=== PATIENT | male | born 2000 | race Caucasian/White ===

== ENCOUNTER 2018-03-15 13:45 | Emergency (ER) | payer MEDICAID ==
[~2018-03-15] VITALS: Ht 165.1 cm; Wt 78.0 kg
[2018-03-15] MEDS ORDERED: TETANUS, DIPHTHERIA, PERTUSSIS VAC/PF 0.5ML (>7YR OLD) IM ONE (15:45)
[2018-03-15] MEDS ORDERED: CEFAZOLIN 1000MG PREMIX 50 ML IV ONE (17:00)
[2018-03-15] MEDS ORDERED: GENTAMICIN 80MG PREMIX 100 ML IV ONE (17:00)
[2018-03-15] MEDS ORDERED: ONDANSETRON HCL 4MG/2ML INJ IV STA (17:17)
[2018-03-15] MEDS ORDERED: MORPHINE SULFATE 4 MG/ML CPJ (NOT FOR IM USE) IV STA (17:17)
[2018-03-15] MEDS ORDERED: SODIUM CHLORIDE 0.9% 1,000 ML IV ONE (17:17)
[2018-03-15] MEDS ORDERED: LIDOCAINE HCL/PF 1% 10 MG/ML 5ML VIAL IJ ONE (17:30)
[2018-03-15] MEDS ORDERED: BACITRACIN ZINC OINT UDPKT TOP ONE (17:30)
[2018-03-15] MEDS ORDERED: GENTAMICIN 80MG PREMIX 100 ML IV SCH (20:30)
[2018-03-15 20:33] VITALS: BP 139/78
== END 2018-03-15 21:45 ==
LOC: ER 14:02
DX: S81.851A Open bite, right lower leg, initial encounter (principal); W54.0XXA Bitten by dog, initial encounter; Y93.K1 Activity, walking an animal; Y92.89 Other specified places as the place of occurrence of the external cause; Y99.8 Other external cause status
CPT/HCPCS: 12002; 73562; 90471; 90715; 96365; 96367; 96375; 99285; J0690; J1580; J2270; J2405; J3490; J7030; Z7610